=== PATIENT | female | born 1985 | race Caucasian/White ===

== ENCOUNTER 2021-04-23 20:39 | Emergency (ER) | payer SELFPAY ==
[2021-04-23 21:32] LABS: HEMOGLOBIN 11.8 gm/dl (12.3-15.3); RED BLOOD COUNT 4.22 M/UL (4.00-5.10); WHITE BLOOD COUNT 7.5 K/UL (4.5-11.0)
[2021-04-23 22:06] LABS: BUN/CREATININE RATIO 21 (0-10)
[2021-04-23] MEDS ORDERED: ZOFRAN4 MG PO (22:53)
[2021-04-23] MEDS ORDERED: OMNICEF 300 MG300 MG PO (22:53)
== END 2021-04-23 22:15 | disposition home or self-care (01) ==
LOC: ER1 20:39
PROVIDERS: Physician Assistant Medical
DX: R07.9 Chest pain, unspecified (principal); N39.0 Urinary tract infection, site not specified; I10 Essential (primary) hypertension; F17.210 Nicotine dependence, cigarettes, uncomplicated
CPT/HCPCS: 71045; 80053; 80307; 81001; 82550; 82553; 83605; 83874; 84439; 84443; 84484; 84703; 85025; 87040; 87086; 93005; 96374; 96375; 99285; J0696; J2405